=== PATIENT | female | born 1950 | race Caucasian/White ===

== ENCOUNTER → 2019-10-07 13:14 | Outpatient (BNVA) | payer MEDICARE, SELFPAY | PROVIDERS: Family Provider Electrodiagnostic Medicine; PCP Electrodiagnostic Medicine; Referring Provider Internal Medicine Rheumatology; Visit Provider Internal Medicine Rheumatology | DX: M81.0 Age-related osteoporosis without current pathological fracture (principal); Z79.899 Other long term (current) drug therapy | CPT/HCPCS: 36415; 82310; 82565 ==

== ENCOUNTER 2019-10-28 10:16 | Outpatient (CLI) | payer MEDICARE, SELFPAY ==
[2019-10-28 10:50] VITALS: BP 146/88; PULSE 69; RESP 16; TEMP 36.7
[2019-10-28] MEDS: denosumab 60 mg SDV SUBCUT (11:00)
[2019-10-28 11:03] VITALS: BP 157/85; PULSE 62; RESP 16; TEMP 36.8
== END 2019-10-28 10:17 | disposition home or self-care (01) ==
LOC: RHEOACUTE 10:18
PROVIDERS: Family Provider Electrodiagnostic Medicine; PCP Electrodiagnostic Medicine; Visit Provider Internal Medicine Rheumatology
DX: M81.0 Age-related osteoporosis without current pathological fracture (principal)
CPT/HCPCS: 96372; J0897

== ENCOUNTER → 2020-04-28 09:00 | Outpatient (BNVA) | payer MEDICARE, SELFPAY | PROVIDERS: Family Provider Electrodiagnostic Medicine; PCP Electrodiagnostic Medicine; Visit Provider Internal Medicine | DX: M81.0 Age-related osteoporosis without current pathological fracture (principal) | CPT/HCPCS: 36415; 80053; 81003; 82652; 84100; 85025; 99213 ==

== ENCOUNTER 2020-04-30 10:37 | Outpatient (CLI) | payer MEDICARE, SELFPAY ==
[2020-04-30 11:20] VITALS: BP 149/87; PULSE 75; RESP 16; TEMP 36.5; O2SAT 98
[2020-04-30] MEDS: denosumab 60 mg SDV SUBCUT (11:20)
[2020-04-30 11:43] VITALS: BP 149/87; PULSE 75; RESP 16; TEMP 37.1; O2SAT 98
== END 2020-04-30 10:38 | disposition home or self-care (01) ==
LOC: RHEOACUTE 10:38
PROVIDERS: Family Provider Electrodiagnostic Medicine; PCP Electrodiagnostic Medicine; Visit Provider Internal Medicine Rheumatology
DX: M81.0 Age-related osteoporosis without current pathological fracture (principal)
CPT/HCPCS: 96372; J0897

== ENCOUNTER 2020-05-21 13:57 | Outpatient (CLI) | payer MEDICARE, SELFPAY ==
--- NOTE | 2020-05-21 14:45 | XR_ITS ---
WS: [id number] SCREENING DEXA SCAN [facility] CLINICAL INFORMATION: osteoporosis followup COMPARISON: None. FINDINGS: The L1-L4 bone mineral density measures 0.990 g/cm2. This corresponds to a T score score of -1.6 and Z score of 0.2. Right femoral neck bone mineral density measures 0.717. This corresponds to a T score -2.3 and Z sco re of -0.7. XR/XR DEXA axial skeleton* 13941 IMPRESSION: Osteopenia Patient's FRAX calculated 10 year probability for major osteoporotic fracture i s 15.1 % and osteoporotic hip fracture is 2.3%.
== END 2020-05-21 13:58 | disposition home or self-care (01) ==
LOC: RADWPI 14:04
PROVIDERS: Family Provider Electrodiagnostic Medicine; PCP Electrodiagnostic Medicine; Visit Provider Internal Medicine
DX: M81.0 Age-related osteoporosis without current pathological fracture (principal)
CPT/HCPCS: 77080

== ENCOUNTER 2020-10-28 08:03 | Outpatient (CLI) | payer MEDICARE, SELFPAY ==
[2020-10-28 09:02] LABS: Basophils # 0.1 10^3/uL (0.0-0.1); Basophils % 1.1 %; Eosinophils # 0.1 10^3/uL (0.0-0.8); Eosinophils % 2.2 %; Hemoglobin 12.2 g/dL (11.5-15.3); Lymphocytes # 1.7 10^3/uL (0.8-4.8); Lymphocytes % 26.4 %; Mean Corpuscular HGB Conc 32.1 g/dL (30.0-36.0); Mean Corpuscular Hemoglobin 29.2 pg (28.0-34.0); Mean Corpuscular Volume 90.9 fL (81-99); Mean Platelet Volume 10.3 fL (7.4-10.4); Monocytes # 0.5 10^3/uL (0.2-0.9); Monocytes % 7.4 %; Neutrophils # 3.91 10^3/uL (1.8-7.7); Neutrophils % 62.6 %; Nucleated Red Blood Cells % 0 %; Platelet Count 368 10^3/cmm (130-400); Red Blood Count 4.18 10^6/uL (4.1-5.3); Red Cell Distribution Width 13.4 % (12.1-15.1); White Blood Count 6.3 10^3/uL (4.0-10.0)
[2020-10-28 09:20] LABS: Alanine Aminotransferase 15 U/L (0-33); Albumin Level 4.4 g/dL (3.5-5.2); Alkaline Phosphatase 63 IU/L (35-105); Anion Gap 14.1 (5-19); Aspartate Amino Transferase 21 U/L (0-32); Blood Urea Nitrogen 17 mg/dL (8-23); C Reactive Protein 0.4 mg/L (0.0-4.9); Calcium 9.9 mg/dL (8.5-10.5); Carbon Dioxide 26 mmol/L (22-29); Chloride 103 mmol/L (98-107); Globulin 2.9 g/dL (1.3-4.6); Glucose 67 mg/dL (65-115); Osmolality Calculated 288 mOsm/kg (285-295); Potassium 4.1 mmol/L (3.5-5.1); Sodium 139 mmol/L (136-145); Total Bilirubin 0.3 mg/dL (0.15-1.2); Total Protein 7.3 g/dL (6.6-8.7)
[2020-10-28 10:06] LABS: Erythrocyte Sedimentation Rate 15 mm/hr (0-15)
== END 2020-10-28 08:04 | disposition home or self-care (01) ==
LOC: LAB 08:06
PROVIDERS: PCP Electrodiagnostic Medicine; Visit Provider Internal Medicine
DX: M81.0 Age-related osteoporosis without current pathological fracture (principal)
CPT/HCPCS: 36415; 80053; 85025; 85651; 86140

== ENCOUNTER 2020-11-03 12:37 | Outpatient (CLI) | payer MEDICARE, SELFPAY ==
[2020-11-03] MEDS: denosumab 60 mg SDV SUBCUT (13:13)
[2020-11-03 13:33] VITALS: BP 140/65; PULSE 83; RESP 18; TEMP 36.8; O2SAT 95
== END 2020-11-03 12:38 | disposition home or self-care (01) ==
LOC: ONCMED 12:39
PROVIDERS: PCP Electrodiagnostic Medicine; Visit Provider Internal Medicine
DX: M81.0 Age-related osteoporosis without current pathological fracture (principal)
CPT/HCPCS: 96372; J0897

== ENCOUNTER 2020-11-25 11:56 | Outpatient (CLI) | payer MEDICARE, SELFPAY ==
--- NOTE | 2020-11-25 12:07 | XR_ITS ---
WS: [id number] Left foot, 3 views, 11/25/2020 Clinical Data: LEFT FOOT PAIN Comparison: None. Findings: No fractures or dislocations are seen. No bone destruction or erosion is noted. There is a small buni on at the head of the left first metatarsal.The soft tissues are normal. XR/XR foot LT min 3V* [id number] Impression: Small bunion at the head of the left first metatarsal.
== END 2020-11-25 11:57 | disposition home or self-care (01) ==
LOC: RAD 12:04
PROVIDERS: PCP Electrodiagnostic Medicine; Visit Provider Electrodiagnostic Medicine
DX: M79.672 Pain in left foot (principal); M21.612 Bunion of left foot
CPT/HCPCS: 73630

== ENCOUNTER 2021-01-25 09:15 | Outpatient (CLI) | payer MEDICARE, SELFPAY ==
--- NOTE | 2021-01-25 09:43 | FL_ITS ---
WS: [id number] UPPER GI WITH AIR TECHNICAL: Double contrast upper GI. FLUOROSCOPY TIME: 2.4 minutes CLINICAL INFORMATION: VOMITING,DIARRHEA, REGURITATION, ACID REFLUX COMPARISON: None. FINDINGS: Swallowing: Normal. Esophagus: Mild to moderate esophageal dysmotility. No high-grade stricture or obstructing mass. Gastroesophageal reflux: Marked reflux is seen in the supine position to the upper thoracic esophagus . Stomach: Thickened gastric folds consistent with gastritis. Small esophageal hiatal hernia. Duodenum: Normal duodenal C-loop. Other findings: None. FL/FL upper GI w air* [id number] IMPRESSION: 1. Marked reflux is seen in the upright and supine positions to the upper thor acic esophagus. This is worse in the supine position. 2. Mild to moderate esophageal dysmotility. 3. Small esophageal hiatal hernia. 4. Reflux esophagitis in the distal esophagus. 5. Gastric rugal thickening consistent with gastritis.
== END 2021-01-25 09:16 | disposition home or self-care (01) ==
LOC: RADWPI 09:25
PROVIDERS: PCP Electrodiagnostic Medicine; Visit Provider Electrodiagnostic Medicine
DX: R11.10 Vomiting, unspecified (principal); R19.7 Diarrhea, unspecified; K21.9 Gastro-esophageal reflux disease without esophagitis; K44.9 Diaphragmatic hernia without obstruction or gangrene; K21.00 Gastro-esophageal reflux disease with esophagitis, without bleeding
CPT/HCPCS: 74246

== ENCOUNTER 2021-02-05 11:06 | Outpatient (CLI) | payer MEDICARE, SELFPAY ==
--- NOTE | 2021-02-05 11:13 | FL_ITS ---
WS: [id number] MODIFIED BARIUM SWALLOW TECHNIQUE: Modified barium swallow with speech therapy using multiple consistencies. FLUOROSCOPY TIME: 2.5 minutes. CLINICAL INFORMATION: Other dysphagia COMPARISON: Upper GI January 25, 2021 FINDINGS: Multiple consistencies utilized. No evidence of aspiration. Slight penetration with thin liquids. No difficulties with the barium tablet. Mild esophageal dysmotility is visualized with reflux. Early spi llage with delayed oropharyngeal phase. FL/FL barium swallow modifd [id number] IMPRESSION: 1. No evidence of mere aspiration. Slight penetration with thin liquids. 2. Early spillage with slightly delayed oropharyngeal space. 3. Mild esophageal dysmotility. Partially visualized esophageal reflux. This a ppears unchanged since the recent upper GI January 25, 2021
== END 2021-02-05 11:07 | disposition home or self-care (01) ==
PROVIDERS: PCP Electrodiagnostic Medicine; Visit Provider Electrodiagnostic Medicine
DX: R13.10 Dysphagia, unspecified (principal); K20.80 Other esophagitis without bleeding
CPT/HCPCS: 74230; 92611

== ENCOUNTER 2021-04-29 07:53 | Outpatient (CLI) | payer MEDICARE, SELFPAY ==
[2021-04-29 09:06] LABS: Albumin Level 4.3 g/dL (3.5-5.2); Calcium 9.6 mg/dL (8.5-10.5)
[2021-04-29 09:23] LABS: 25 Hydroxy Vitamin D 55 ng/mL (30-100)
== END 2021-04-29 07:54 | disposition home or self-care (01) ==
LOC: ONCMED 07:55
PROVIDERS: PCP Electrodiagnostic Medicine; Referring Provider Internal Medicine; Visit Provider Internal Medicine
DX: M81.0 Age-related osteoporosis without current pathological fracture (principal)
CPT/HCPCS: 36415; 82040; 82306; 82310; 82565

== ENCOUNTER 2021-05-10 05:58 | Outpatient (CLI) | payer MEDICARE, SELFPAY ==
[2021-05-10 07:57] VITALS: BP 130/70; PULSE 71; RESP 18; TEMP 36.4; O2SAT 99
[2021-05-10] MEDS: denosumab 60 mg SDV SUBCUT (08:15)
[2021-05-10 08:24] VITALS: BP 117/71; PULSE 69; RESP 18; TEMP 36.6; O2SAT 98
== END 2021-05-10 05:59 | disposition home or self-care (01) ==
LOC: ONCMED 05:59
PROVIDERS: PCP Electrodiagnostic Medicine; Referring Provider Internal Medicine; Visit Provider Internal Medicine
DX: M81.0 Age-related osteoporosis without current pathological fracture (principal)
CPT/HCPCS: 96372; J0897

== ENCOUNTER → 2021-09-06 10:55 | Outpatient (BNVA) | payer MEDICARE, SELFPAY | PROVIDERS: PCP Electrodiagnostic Medicine; Visit Provider Family Medicine | DX: Z20.828 Contact with and (suspected) exposure to other viral communicable diseases (principal) | CPT/HCPCS: 87426; 87635 ==

== ENCOUNTER → 2021-10-19 08:37 | Outpatient (BNVA) | payer MEDICARE, SELFPAY | PROVIDERS: PCP Electrodiagnostic Medicine; Visit Provider Internal Medicine | DX: M81.0 Age-related osteoporosis without current pathological fracture (principal); Z79.899 Other long term (current) drug therapy; M65.9 Synovitis and tenosynovitis, unspecified; Z98.890 Other specified postprocedural states; Z87.891 Personal history of nicotine dependence | CPT/HCPCS: 99214 ==

== ENCOUNTER 2021-10-20 08:25 | Outpatient (CLI) | payer MEDICARE, SELFPAY ==
--- NOTE | 2021-10-20 08:32 | XR_ITS ---
WS: [id number] LEFT HAND: 2 VIEW(S) TECHNIQUE: PA and lateral. HISTORY: M81.0 - Age-related osteoporosis. History of surgery. Pain. COMPARISON: None available. No acute fracture or dislocation. Mild narrowing of the interphalangeal joints. No erosions at the metacarpal heads. No subluxation. Prior volar plate and screw fixation distal radius. Mild degenerative changes involving the ulnar sty loid with no erosion. XR/XR hand LT 2V [id number] IMPRESSION: 1. Very mild narrowing of the interphalangeal joints. 2. No metacarpal head erosions. 3. No significant degenerative changes at the first CMC joint.
== END 2021-10-20 08:26 | disposition home or self-care (01) ==
LOC: RAD 08:31
PROVIDERS: PCP Electrodiagnostic Medicine; Visit Provider Internal Medicine
DX: M81.0 Age-related osteoporosis without current pathological fracture (principal)
CPT/HCPCS: 73120

== ENCOUNTER 2021-10-25 07:54 | Outpatient (CLI) | payer MEDICARE, SELFPAY ==
[2021-10-25 09:12] LABS: Albumin Level 4.7 g/dL (3.5-5.2)
[2021-10-25 09:20] LABS: 25 Hydroxy Vitamin D 88 ng/mL (30-100)
== END 2021-10-25 07:55 | disposition home or self-care (01) ==
PROVIDERS: PCP Electrodiagnostic Medicine; Visit Provider Internal Medicine
DX: M81.0 Age-related osteoporosis without current pathological fracture (principal); Z79.899 Other long term (current) drug therapy
CPT/HCPCS: 36415; 82040; 82306; 82310; 82565

== ENCOUNTER 2021-11-08 07:59 | Outpatient (CLI) | payer MEDICARE, SELFPAY ==
[2021-11-08 08:08] VITALS: BP 133/72; PULSE 74; RESP 18; TEMP 36.4; O2SAT 99
[2021-11-08 08:15] VITALS: BP 133/78; PULSE 74; RESP 18; TEMP 36.4; O2SAT 98
[2021-11-08] MEDS: denosumab 60 mg SDV SUBCUT (08:15)
== END 2021-11-08 08:00 | disposition home or self-care (01) ==
PROVIDERS: PCP Electrodiagnostic Medicine; Referring Provider Internal Medicine; Visit Provider Internal Medicine Medical Oncology
DX: M81.0 Age-related osteoporosis without current pathological fracture (principal)
CPT/HCPCS: 96372; J0897

== ENCOUNTER 2022-05-10 08:59 | Emergency (ER) | payer MEDICARE, SELFPAY ==
--- NOTE | 2022-05-10 09:03 | USCV_ITS ---
Nereyda Scott Age: 71 Gender: F : 1950 Exam Date: 05/10/2022 09:38 Ordering Phys: Marcia Guadarrama Technologist: TODD Exam Location: [facility] – [place] Indication: RLE PAIN AND SWELLING HISTORY: Lower extremity swelling. Lower extremity pain. PROCEDURES: Venous duplex imaging was performed in only the right lower extremity. The following venous structures were evaluated: common femoral vein, profunda vein, proximal portion of the greater saphenous vein, superficial femoral vein, and the popliteal vein. In addition, the posterior tibial and peroneal trunk were evaluated. Serial compression, augmentation maneuvers, and spectral Doppler flow evaluation were performed. FINDINGS: No evidence of DVT seen in any vessel visualized at this time. CONCLUSIONS No evidence of right lower extremity DVT. Lalo Gaytan MD (Electronically Signed) Final Date: 11 May 2022 09:57 S
[2022-05-10 09:06] VITALS: BP 170/69; PULSE 90; RESP 18; O2SAT 98
--- NOTE | 2022-05-10 09:23 | ED_ITS ---
Documented by User: SARAH Vora 05/10/22 16:18 HPI - Extremity Problem General: Chief complaint: Extremity Problem,Nontraumatic Stated complaint: right side is in pain Time Seen by Provider: 05/10/22 09:01 History of Present Illness: Patient is in today for complaints of right medial leg pain. She reports that x4 weeks she has had significant pain in her right lower extremity on the inner side of her calf. She reports that she has had no trauma to the leg has not had any falls, injuries. She reports that the pain just suddenly started and has continued despite all of the conservative measures she has tried at home. She has tried ice, heat, massage, elevation. She is using different shoe inserts. She reports pain with dorsiflexion. She denies any shortness of breath, chest pain, cough. She denies any history of DVT. No recent travel in the past 8 weeks. She flew to [place] in January. Associated symptoms: Deny chest pain or fever(s) Review of Systems Const: Denies: fever(s), chills or body aches Card: Denies: chest pain, palpitations or irregular heart rhythm Resp: Denies: dyspnea, productive cough, non-productive cough or hemoptysis Musc: Reports: extremity pain (Moderate to severe right lower extremity pain) and extremity swelling (Moderate swelling to right lower extremity intermittent) [facility] ED PFSH: Medical History Hypercholesteremia Osteoporosis Social History Smoking and tobacco status: former smoker Quit status (tobacco): has quit using tobacco Former quit date comment: 30+ years ago Alcohol intake: never History of recent travel: Yes Physical Exam Const: COMMON NORMALS: patient oriented x3 and alert OTHER: Patient is walking with a limp and does seem to be bothered by the pain in her right lower extremity, however she is not in acute distress Neck/C-Spine: COMMON NORMALS: no JVD Resp: COMMON NORMALS: normal respiratory effort, No retractions, No use of accessory muscles and clear to auscultation bilaterally AUSCULTATION: clear to auscultation bilaterally Cardio: COMMON NORMALS: no JVD, regular rate, regular rhythm, S1 normal heart sound present, S2 normal heart sound present and No murmurs present (Cardio) RATE: regular rate RHYTHM: regular rhythm HEART SOUNDS: S1 normal heart so und present and S2 normal heart sound present Extremity: RIGHT LOWER EXTREMITY: Yes lower leg (Pain to the right medial calf) Right lower leg: Yes inspection (Mild swelling of the right lower extremity) and Yes other (Right medial calf slightly warmer to touch) OTHER: There is point tenderness to the right anterior medial calf with mild swelling of the right lower extremity. This area is slightly more warm to touch than the remainder of the leg. Pedal pulses and posterior tibialis pulses are equal and strong bilateral. Patient reports slight increase in pain with dorsiflexion of the right foot on exam Neuro: COMMON NORMALS: patient oriented x3 SENSORIUM/ORIENTATION: Yes alert Course Vital Signs: Vital signs: Vital Signs Pulse Rate 65 05/10/22 10:07 Respiratory Rate 17 05/10/22 10:07 Blood Pressure 147/76 05/10/22 10:43 Pulse Oximetry 97 05/10/22 10:07 Oxygen Delivery Me thod 05/10/22 10:07 MDM - Extremity (Nontraumatic) Medical Decision Making 71-year-old female in today for chronic right lower extremity pain x4 weeks. She denies any injury, trauma, falls. She is a normally active female who does a lot of walking every day. She is used to stairs and inclines and denies any change in her recent routine. She reports that she has tried conservative measures at home including ice, heat, massage, elevation. She reports that the pain is not worsening but is not improving. Physical exam shows a mildly swollen right lower extremity as compared to left. There is no redness. There is tenderness to palpation anterior medial right calf without any appreciated bony or soft tissue deformities. CSM and pulses are within normal limits. Evaluated patient for DVT. Venous duplex was negative for DVT. We will x-ray the extremity just to rule out any bony etiology. Patient has a history of osteoporosis and rheumatoid arthritis. X-ray does not show any acute bony etiology or deformity. We will treat patient conservatively for muscle strain. Advised her to rest the leg for the next couple of days. Discussed conservative treatments at home including ice, rest, elevation, heat. Follow-up with primary care provider next week if symptoms are persisting. Return to the ER for new or worsening symptoms. Lab Data Radiology Impressions Tibia/Fibula X-Ray 05/10/22 09:47 IMPRESSION: No acute fracture or malalignment. Discharge Plan Discharge Patient Disposition: Home Clinical Impression: Muscle strain Condition: Stable Prescriptions: No Action fluorouracil 5 % cream 1 applic topical .twice year Biofreeze (menthol) 4 % gel 1 applic topical DAILY meloxicam 15 mg tablet 15 mg PO DAILY zinc 50 mg tablet 50 mg PO DAILY diclofenac sodium [Voltaren Arthritis Pain] 1 % gel 4 g topical QID Qty: 100 0RF Rx Instructions: apply to single knee, ankle, foot; for foot includes sole/toes/top of foot fluoxetine 10 mg capsule 5 mg PO DAILY atorvastatin 10 mg tablet 10 mg PO DAILY fluticasone propionate [Flonase Allergy Relief] 50 mcg/actuation spray,suspension 1 spray INTRANASAL DAILY Rx Instructions: administer into each nostril cholecalciferol (vitamin D3) 25 mcg (1,000 unit) capsule 25 mcg PO DAILY Discharge Orders: Discharge ED (Routine); Ordered 05/10/22 Ordered By: Marcia Guadarrama Referrals: Doc Potter DO [Primary Care Provider] - Discharge Diet: Usual diet Patient Instructions: Muscle Strain (ED), Pain Management Activity Restrictions/Additional Instructions: You are negative for blood clot in your leg today. Your x-rays were normal today. I recommend conservative treatment for muscle strain. Rest, ice and heat alternated, nonsteroidal anti-inflammatories. Follow-up with primary care provider next week for persisting symptoms or if you are not noticing any improvement. Return to the ER for new or worsening symptoms. 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 Documented by User: Zackery Oviedo DO 05/11/22 06:06 HPI - Extremity Problem General: Chief complaint: Extremity Problem,Nontraumatic Stated complaint: right side is in pain Time Seen by Provider: 05/10/22 09:01 PFS ED PFS: Medical History Hypercholesteremia Osteoporosis Social History Smoking and tobacco status: former smoker Quit status (tobacco): has quit using tobacco Former quit date comment: 30+ years ago Alcohol intake: never History of recent travel: Yes Course Vital Signs: Vital signs: Vital Signs Pulse Rate 65 05/10/22 10:07 Respiratory Rate 17 05/10/22 10:07 Blood Pressure 147/76 05/10/22 10:43 Pulse Oximetry 97 05/10/22 10:07 Oxygen Delivery Me thod 05/10/22 10:07 MDM - Extremity (Nontraumatic) Medical Decision Making 71-year-old female in today for chronic right lower extremity pain x4 weeks. She denies any injury, trauma, falls. She is a normally active female who does a lot of walking every day. She is used to stairs and inclines and denies any change in her recent routine. She reports that she has tried conservative measures at home including ice, heat, massage, elevation. She reports that the pain is not worsening but is not improving. Physical exam shows a mildly swollen right lower extremity as compared to left. There is no redness. There is tenderness to palpation anterior medial right calf without any appreciated bony or soft tissue deformities. CSM and pulses are within normal limits. Evaluated patient for DVT. Venous duplex was negative for DVT. We will x-ray the extremity just to rule out any bony etiology. Patient has a history of osteoporosis and rheumatoid arthritis. X-ray does not show any acute bony etiology or deformity. We will treat patient conservatively for muscle strain. Advised her to rest the leg for the next couple of days. Discussed conservative treatments at home including ice, rest, elevation, heat. Follow-up with primary care provider next week if symptoms are persisting. Return to the ER for new or worsening symptoms. Chart reviewed and patient discussed with midlevel. Agree with assessment and plan. Lab Data Radiology Impressions Tibia/Fibula X-Ray 05/10/22 09:47 IMPRESSION: No acute fracture or malalignment. Discharge Plan Discharge Patient Disposition: Home Clinical Impression: Muscle strain Condition: Stable Prescriptions: No Action fluorouracil 5 % cream 1 applic topical .twice year Biofreeze (menthol) 4 % gel 1 applic topical DAILY meloxicam 15 mg tablet 15 mg PO DAILY zinc 50 mg tablet 50 mg PO DAILY diclofenac sodium [Voltaren Arthritis Pain] 1 % gel 4 g topical QID Qty: 100 0RF Rx Instructions: apply to single knee, ankle, foot; for foot includes sole/toes/top of foot fluoxetine 10 mg capsule 5 mg PO DAILY atorvastatin 10 mg tablet 10 mg PO DAILY fluticasone propionate [Flonase Allergy Relief] 50 mcg/actuation spray,jeremy pension 1 spray INTRANASAL DAILY Rx Instructions: administer into each nostril cholecalciferol (vitamin D3) 25 mcg (1,000 unit) capsule 25 mcg PO DAILY Discharge Orders: Discharge ED (Routine); Ordered 05/10/22 Ordered By: Marcia Guadarrama Referrals: Doc Potter DO [Primary Care Provider] - Discharge Diet: Usual diet Patient Instructions: Muscle Strain (ED), Pain Management Activity Restrictions/Additional Instructions: You are negative for blood clot in your leg today. Your x-rays were normal today. I recommend conservative treatment for muscle strain. Rest, ice and heat alternated, nonsteroidal anti-inflammatories. Follow-up with primary care provider next week for persisting symptoms or if you are not noticing any improvement. Return to the ER for new or worsening symptoms. 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
--- NOTE | 2022-05-10 09:47 | XRR_ITS ---
PROCEDURE INFORMATION: Exam: XR Right Tibia and Fibula Exam date and time: 05/10/2022 9:55 AM Age: 71 years old Clinical indication: Pain; Swelling, leg or foot; Lower leg; Right; Additional info: Rle pain and swelling- HX of osteoporosis TECHNIQUE: Imaging protocol: Radiologic exam of the Right tibia and fibula. Views: 2 views. COMPARISON: No relevant prior studies available. FINDINGS: Bones/joints: No acute fracture or malalignment. Osteopenia. Soft tissues: Normal. XR/XR tibia fibula RT 2V [id number] IMPRESSION: No acute fracture or malalignment.
[2022-05-10 10:07] VITALS: BP 147/76; PULSE 65; RESP 17; O2SAT 97
[2022-05-10 10:43] VITALS: BP 147/76
== END 2022-05-10 10:50 | disposition home or self-care (01) ==
PROVIDERS: Emergency Provider Nurse Practitioner Family; PCP Electrodiagnostic Medicine
DX: S86.911A Strain of unspecified muscle(s) and tendon(s) at lower leg level, right leg, initial encounter (principal); X58.XXXA Exposure to other specified factors, initial encounter; Z87.891 Personal history of nicotine dependence
CPT/HCPCS: 73590; 93971; 99284

== ENCOUNTER 2022-05-12 07:59 | Outpatient (CLI) | payer MEDICARE, SELFPAY ==
[2022-05-12 08:56] LABS: Albumin Level 4.4 g/dL (3.5-5.2); Calcium 9.5 mg/dL (8.5-10.5); Creatinine Clr Calc Pharmacy 61.6288
[2022-05-12 09:18] VITALS: BP 146/80; PULSE 64; RESP 18; TEMP 36.3; O2SAT 98
[2022-05-12] MEDS: denosumab 60 mg SDV SUBCUT (09:28)
[2022-05-12 09:36] VITALS: BP 152/80; PULSE 68; RESP 18; TEMP 36.4; O2SAT 97
[2022-05-12 10:02] LABS: 25 Hydroxy Vitamin D > 100 ng/mL (30-100)
== END 2022-05-12 08:00 | disposition home or self-care (01) ==
PROVIDERS: PCP Electrodiagnostic Medicine; Visit Provider Internal Medicine
DX: M81.0 Age-related osteoporosis without current pathological fracture (principal)
CPT/HCPCS: 36415; 82040; 82306; 82310; 82565; 96372; J0897

== ENCOUNTER → 2022-10-18 13:25 | Outpatient (BNVA) | payer MEDICARE, SELFPAY | PROVIDERS: PCP Electrodiagnostic Medicine; Visit Provider Internal Medicine Rheumatology | DX: M81.0 Age-related osteoporosis without current pathological fracture (principal); Z79.899 Other long term (current) drug therapy | CPT/HCPCS: 99214 ==

== ENCOUNTER 2022-10-27 13:06 | Outpatient (CLI) | payer MEDICARE, SELFPAY ==
--- NOTE | 2022-10-27 14:30 | XR_ITS ---
WS: [id number] SCREENING DEXA SCAN [place] CLINICAL INFORMATION: M81.0 - Age-related osteoporosis without current patholog... COMPARISON: 2019 FINDINGS: The L1-L4 bone mineral density measures 0.991 g/cm2. This corresponds to a T score score of -1.6 and Z score of 0.0. RIGHT femoral neck bone mineral density measures 0.71. This corresponds to a T score of -2.4 and Z sc ore of -0.8. XR/XR DEXA axial skeleton* [id number] IMPRESSION: Osteopenia lumbar spine. Osteopenia RIGHT femoral neck at the upper end of the range approaching osteoporosis. Patient's FRAX calculated 10 year probability for major osteoporotic fracture i s 16.8 % and osteoporotic hip fracture is 2.8%. Bone mineral density in the lumbar spine has increased 0.1% since 2020. Bone mineral density in the RIGHT femoral neck has decreased -1.1% since 2019
== END 2022-10-27 13:07 | disposition home or self-care (01) ==
PROVIDERS: PCP Electrodiagnostic Medicine; Visit Provider Internal Medicine Rheumatology
DX: M81.0 Age-related osteoporosis without current pathological fracture (principal); M85.89 Other specified disorders of bone density and structure, multiple sites
CPT/HCPCS: 77080

== ENCOUNTER 2022-11-10 07:47 | Oncology outpatient (recurring) (ONCR) | payer MEDICARE, SELFPAY ==
[2022-11-10 08:17] LABS: Basophils # 0.1 10^3/uL (0.0-0.1); Basophils % 1.6 %; Eosinophils # 0.4 10^3/uL (0.0-0.8); Eosinophils % 6.6 %; Hematocrit 34.6 % (37.0-47.0); Hemoglobin 11.1 g/dL (11.5-15.3); Lymphocytes # 1.8 10^3/uL (0.8-4.8); Mean Corpuscular HGB Conc 32.1 g/dL (30.0-36.0); Mean Corpuscular Hemoglobin 27.8 pg (28.0-34.0); Mean Corpuscular Volume 86.7 fl (81-99); Mean Platelet Volume 10.3 fL (7.4-10.4); Monocytes # 0.5 10^3/uL (0.2-0.9); Neutrophils # 2.77 10^3/uL (1.8-7.7); Neutrophils % 50.6 %; Nucleated Red Blood Cells % 0 %; Platelet Count 337 10^3/cmm (130-400); Red Blood Count 3.99 10^6/uL (4.1-5.3); Red Cell Distribution Width 14.6 % (12.1-15.1); White Blood Count 5.5 10^3/uL (4.0-10.0)
[2022-11-10 08:49] LABS: Erythrocyte Sedimentation Rate 11 mm/hr (0-15)
[2022-11-10 09:21] LABS: Alanine Aminotransferase 19 U/L (0-33); Alkaline Phosphatase 50 U/L (35-105); Anion Gap 14.7 (5-19); Aspartate Amino Transferase 30 U/L (0-32); Blood Urea Nitrogen 14 mg/dL (8-23); Calcium 9.2 mg/dL (8.5-10.5); Carbon Dioxide 23 mmol/L (22-29); Chloride 103 mmol/L (98-107); Globulin 2.6 g/dL (1.3-4.6); Glucose 81 mg/dL (65-115); Osmolality Calculated 282 mOsm/kg (285-295); Potassium 4.7 mmol/L (3.5-5.1); Sodium 136 mmol/L (136-145); Total Bilirubin 0.3 mg/dL (0.15-1.2); Total Protein 6.6 g/dL (6.6-8.7)
== END 2022-11-18 23:59 | disposition home or self-care (01) ==
PROVIDERS: Internal Medicine; PCP Electrodiagnostic Medicine; Visit Provider Internal Medicine Rheumatology
DX: M81.0 Age-related osteoporosis without current pathological fracture (principal); Z79.899 Other long term (current) drug therapy
CPT/HCPCS: 36415; 80053; 85025; 85651

== ENCOUNTER → 2023-04-11 14:19 | Outpatient (BNVA) | payer MEDICARE, SELFPAY | PROVIDERS: PCP Electrodiagnostic Medicine; Visit Provider Internal Medicine Rheumatology | DX: M81.0 Age-related osteoporosis without current pathological fracture (principal); Z79.899 Other long term (current) drug therapy | CPT/HCPCS: 99214 ==

== ENCOUNTER 2023-05-15 08:00 | Oncology outpatient (recurring) (ONCR) | payer MEDICARE, SELFPAY ==
[2023-05-08 09:21] LABS: 25 Hydroxy Vitamin D 58 ng/mL (30-100); Albumin Level 4.1 g/dL (3.5-5.2); Calcium 8.9 mg/dL (8.5-10.5)
[2023-05-15 07:54] VITALS: BP 131/79; PULSE 64; RESP 18; TEMP 36.4; O2SAT 96
[2023-05-15] MEDS: denosumab 60 mg SDV SUBCUT (08:05)
== END 2023-05-20 23:59 | disposition home or self-care (01) ==
PROVIDERS: PCP Electrodiagnostic Medicine; Visit Provider Internal Medicine Rheumatology
DX: M81.0 Age-related osteoporosis without current pathological fracture (principal)
CPT/HCPCS: 36415; 82040; 82306; 82310; 82565; 96372; J0897

== ENCOUNTER → 2023-09-28 12:17 | Outpatient (BNVA) | payer MEDICARE, SELFPAY | PROVIDERS: PCP Electrodiagnostic Medicine; Visit Provider Otolaryngology | DX: H90.11 Conductive hearing loss, unilateral, right ear, with unrestricted hearing on the contralateral side (principal); H61.21 Impacted cerumen, right ear; H60.543 Acute eczematoid otitis externa, bilateral; J34.2 Deviated nasal septum; M95.0 Acquired deformity of nose | CPT/HCPCS: 69210; 99204 ==

== ENCOUNTER 2023-11-06 07:31 | Outpatient (CLI) | payer MEDICARE, SELFPAY ==
[2023-11-06 07:51] LABS: Basophils # 0.1 10^3/uL (0.0-0.1); Basophils % 1.2 %; Eosinophils # 0.2 10^3/uL (0.0-0.8); Eosinophils % 3.1 %; Hematocrit 37.8 % (36-47); Lymphocytes # 1.5 10^3/uL (0.8-4.8); Lymphocytes % 29.8 %; Mean Corpuscular Hemoglobin 28.9 pg (27-33); Mean Corpuscular Volume 90.4 fl (85-98); Mean Platelet Volume 10.1 fL (7.4-10.4); Monocytes # 0.4 10^3/uL (0.2-0.9); Monocytes % 7.6 %; Neutrophils # 2.99 10^3/uL (1.8-7.7); Neutrophils % 58.1 %; Nucleated Red Blood Cells % 0 %; Platelet Count 334 10^3/cmm (157-399); Red Blood Count 4.18 10^6/uL (3.85-5.65); Red Cell Distribution Width 13.6 % (12.1-15.1); White Blood Count 5.14 10^3/uL (3.29-11.43)
[2023-11-06 08:25] LABS: Alanine Aminotransferase 20 U/L (0-33); Albumin Level 4.5 g/dL (3.5-5.2); Alkaline Phosphatase 62 U/L (35-105); Aspartate Amino Transferase 25 U/L (0-32); Calcium 9.6 mg/dL (8.5-10.5); Globulin 2.8 g/dL (1.3-4.6); Total Bilirubin 0.2 mg/dL (0.15-1.2); Total Protein 7.3 g/dL (6.6-8.7)
[2023-11-06 08:40] LABS: 25 Hydroxy Vitamin D 46 ng/mL (30-100)
== END 2023-11-06 07:32 | disposition home or self-care (01) ==
LOC: LAB 07:32
PROVIDERS: PCP Family Medicine; Visit Provider Internal Medicine Rheumatology
DX: M81.0 Age-related osteoporosis without current pathological fracture (principal); Z79.899 Other long term (current) drug therapy
CPT/HCPCS: 36415; 80076; 82306; 82310; 82565; 85025; 86140

== ENCOUNTER 2023-11-13 07:38 | Oncology outpatient (recurring) (ONCR) | payer MEDICARE, SELFPAY ==
[2023-11-13] MEDS: denosumab 60 mg SDV SUBCUT (08:11)
== END 2023-11-19 23:59 | disposition home or self-care (01) ==
LOC: ONCMED 07:38
PROVIDERS: PCP Family Medicine; Visit Provider Internal Medicine Rheumatology
DX: M81.0 Age-related osteoporosis without current pathological fracture (principal)
CPT/HCPCS: 96372; J0897

== ENCOUNTER → 2023-11-22 13:22 | Outpatient (BNVA) | payer MEDICARE, SELFPAY | PROVIDERS: PCP Family Medicine; Visit Provider Family Medicine | DX: E04.9 Nontoxic goiter, unspecified (principal) | CPT/HCPCS: 84443 ==

== ENCOUNTER → 2023-12-04 07:40 | Outpatient (BNVA) | payer MEDICARE, SELFPAY | PROVIDERS: PCP Family Medicine; Visit Provider Podiatrist Foot & Ankle Surgery | DX: M21.611 Bunion of right foot (principal); M21.612 Bunion of left foot; M20.41 Other hammer toe(s) (acquired), right foot; M20.42 Other hammer toe(s) (acquired), left foot | CPT/HCPCS: 99203 ==

== ENCOUNTER → 2024-04-09 14:17 | Outpatient (BNVA) | payer MEDICARE, SELFPAY | PROVIDERS: PCP Family Medicine; Visit Provider Internal Medicine Rheumatology | DX: M81.0 Age-related osteoporosis without current pathological fracture (principal); Z79.899 Other long term (current) drug therapy | CPT/HCPCS: 99214 ==

== ENCOUNTER 2024-05-06 07:17 | Outpatient (CLI) | payer MEDICARE, SELFPAY ==
[2024-05-06 08:20] LABS: Albumin Level 4.5 g/dL (3.5-5.2); Calcium 9.3 mg/dL (8.5-10.5)
[2024-05-06 09:10] LABS: 25 Hydroxy Vitamin D 42 ng/mL (30-100)
== END 2024-05-06 07:18 | disposition home or self-care (01) ==
PROVIDERS: PCP Family Medicine; Visit Provider Internal Medicine Rheumatology
DX: Z79.899 Other long term (current) drug therapy (principal); M81.0 Age-related osteoporosis without current pathological fracture
CPT/HCPCS: 36415; 82040; 82306; 82310; 82565

== ENCOUNTER 2024-05-13 07:29 | Oncology outpatient (recurring) (ONCR) | payer MEDICARE, SELFPAY ==
[2024-05-13] MEDS: denosumab 60 mg SDV SUBCUT (08:10)
[2024-05-13 08:13] VITALS: BP 160/82; PULSE 67; RESP 16; TEMP 36.5; O2SAT 97
== END 2024-05-20 23:59 | disposition home or self-care (01) ==
PROVIDERS: PCP Family Medicine; Visit Provider Internal Medicine Rheumatology
DX: Z79.899 Other long term (current) drug therapy (principal); M81.0 Age-related osteoporosis without current pathological fracture
CPT/HCPCS: 96372; J0897

== ENCOUNTER → 2024-10-07 08:03 | Outpatient (BNVA) | payer MEDICARE, SELFPAY | PROVIDERS: PCP Family Medicine; Visit Provider Nurse Practitioner Family | DX: L21.8 Other seborrheic dermatitis (principal); L81.4 Other melanin hyperpigmentation; L82.1 Other seborrheic keratosis; L57.8 Other skin changes due to chronic exposure to nonionizing radiation; Z08 Encounter for follow-up examination after completed treatment for malignant neoplasm; Z85.828 Personal history of other malignant neoplasm of skin; L57.0 Actinic keratosis | CPT/HCPCS: 17000; 99213 ==

== ENCOUNTER → 2024-10-16 12:22 | Outpatient (BNVA) | payer MEDICARE, SELFPAY | PROVIDERS: PCP Family Medicine; Visit Provider Internal Medicine Rheumatology | DX: M81.0 Age-related osteoporosis without current pathological fracture (principal); Z79.899 Other long term (current) drug therapy | CPT/HCPCS: 36415; 80076; 82306; 82310; 82565; 85025; 99214 ==

== ENCOUNTER 2024-10-28 07:38 | Outpatient (CLI) | payer MEDICARE, SELFPAY ==
--- NOTE | 2024-10-28 14:00 | XR_ITS ---
WS: [id number] SCREENING DEXA SCAN [employer] CLINICAL INFORMATION: M81.0 - Age-related osteoporosis without current patholog... COMPARISON: 2022 FINDINGS: The L1-L4 bone mineral density measures 1.048 g/cm2. This corresponds to a T score score of -1.1 and Z score of 0.5. RIGHT forearm bone mineral density measures 0.69. This corresponds to a T score of -2.1 and Z score of 0.2. Right femoral neck bone mineral density measures 0.74. This corresponds to a T score of -2.2 of and Z score of -0.5. XR/XR DEXA axial skeleton* 98010 IMPRESSION: Osteopenia lumbar spine. Osteopenia RIGHT femoral neck. Osteopenia RIGHT forear m. Patient's FRAX calculated 10 year probability for major osteoporotic fracture i s 15.9% and osteoporotic hip fracture is 2.5%. Bone marrow density lumbar spine increased 5.8% Bone mineral density RIGHT femoral neck increased 3.7%
== END 2024-10-28 07:39 | disposition home or self-care (01) ==
PROVIDERS: PCP Family Medicine; Visit Provider Internal Medicine Rheumatology
DX: M85.89 Other specified disorders of bone density and structure, multiple sites (principal)
CPT/HCPCS: 77080

== ENCOUNTER 2024-11-13 07:41 | Oncology outpatient (recurring) (ONCR) | payer MEDICARE, SELFPAY ==
[2024-11-13] MEDS: denosumab 60 mg SDV SUBCUT (08:11)
== END 2024-11-18 23:59 | disposition home or self-care (01) ==
LOC: ONCMED 07:41
PROVIDERS: PCP Family Medicine; Visit Provider Internal Medicine Rheumatology
DX: M81.0 Age-related osteoporosis without current pathological fracture (principal); Z79.620 Long term (current) use of immunosuppressive biologic
CPT/HCPCS: 96372; J0897

== ENCOUNTER → 2024-11-25 15:22 | Outpatient (BNVA) | payer MEDICARE, SELFPAY | PROVIDERS: PCP Family Medicine; Visit Provider Family Medicine | DX: M81.0 Age-related osteoporosis without current pathological fracture (principal); E78.00 Pure hypercholesterolemia, unspecified; Z71.1 Person with feared health complaint in whom no diagnosis is made | CPT/HCPCS: 80053; 80061; 82306; 82607; 84443; 85025 ==

== ENCOUNTER 2025-05-06 07:36 | Outpatient (CLI) | payer MEDICARE, SELFPAY ==
[2025-05-06 08:37] LABS: Albumin Level 4.4 g/dL (3.5-5.2)
== END 2025-05-06 07:37 | disposition home or self-care (01) ==
LOC: LAB 07:37
PROVIDERS: PCP Family Medicine; Visit Provider Internal Medicine Rheumatology
DX: M81.0 Age-related osteoporosis without current pathological fracture (principal); Z79.899 Other long term (current) drug therapy; M19.90 Unspecified osteoarthritis, unspecified site
CPT/HCPCS: 36415; 82040; 82306; 82565; 86140

== ENCOUNTER 2025-05-13 08:00 | Oncology outpatient (recurring) (ONCR) | payer MEDICARE, SELFPAY ==
[2025-05-13] MEDS: denosumab 60 mg SDV (Infusion Clinic Only) SUBCUT (08:15)
== END 2025-05-20 23:59 | disposition home or self-care (01) ==
PROVIDERS: PCP Family Medicine; Visit Provider Internal Medicine Rheumatology
DX: M81.0 Age-related osteoporosis without current pathological fracture (principal); Z79.899 Other long term (current) drug therapy
CPT/HCPCS: 96372; J0897